=== PATIENT | female | born 2000 | race Caucasian/White ===

== ENCOUNTER 2020-10-19 14:51 | Day surgery (SDC) | payer OTHER, SELFPAY ==
[2020-10-19 15:22] VITALS: BP 111/62; PULSE 95; RESP 18; TEMP 36.7; O2SAT 99
[2020-10-19] MEDS: Lactated Ringers 1,000 ML 100 ML IV (15:38)
[2020-10-19 15:48] LABS: Internal QC Validated? YES +Cl - CLEAR BKGD; Pregnancy, Urine Negative Negative
[2020-10-19] MEDS: Lidocaine 1% /Epi 1:100 (20ml) 20 ML Vial (16:22)
--- NOTE | 2020-10-19 16:28 | PCM.DC ---
Discharge Instructions Follow Up Care Please Follow Up With: antoinette neves When: 2 weeks. Test Results: Test results from this visit will be discussed in further detail at your follow-up appointment, if applicable. Discharge Plan Admission Attending Provider: Adam Neves Primary Care Provider: Coy Lozano Discharge Orders/Prescriptions Prescriptions: No Action fluoxetine 40 mg capsule 40 mg PO DAILY RF: 0 clindamycin HCl 300 mg capsule 300 mg PO Q6H RF: 0 acetaminophen 325 mg Capsule 325 mg PO Q6H PRN (Reason: Pain) RF: 0 Referrals / Follow Up: Coy Lozano MD [Primary Care Provider] - Disposition Discharge Orders: Discharge Patient (Routine); Ordered 10/19/20 Ordered By: Dr. Adam Neves
--- NOTE | 2020-10-19 16:30 | PCM.OPRPT ---
Report of Operation Date of Procedure: 10/19/20 Pre-Operative Diagnosis: right peritonsillar abscess Post-Operative Diagnosis: same Surgery/Procedure Performed:: Incision and drainage right peritonsillar abscess Surgeon: antoinette rasheed Type of Anesthesia: General Anesthesiologist: ghazala gimenez Estimated Blood Loss (mL): minimal Description of Procedure: The patient was brought to the operating room on 10/19/2020. She was placed in the supine position on the operating room table. She was given sufficient general endotracheal anesthesia. The tables are 9 degrees in a clockwise fashion. A Phi mouthgag was inserted into the patient's mouth and the patient was suspended on a Terrazas stand. 1% lidocaine with epinephrine injected into the mucosa overlying the peritonsillar abscess. An incision was made in the mucosa with an 11 blade. I then placed a tonsil clamp in the peritonsillar space and spread this widely. There was immediate extrusion of copious amounts of pus. This was cultured. I then suction the abscess cavity with the Amicar suction. I then irrigated the abscess cavity with 500 cc of saline. I used some suction cautery on the edges of the mucosa. Once hemostasis was achieved the instrumentation was removed. The Patient was then awoken and brought to recovery room in stable condition. blood loss minimal, replacement none. sponge needle and instrument count correct at the end of procedure.
[2020-10-19 16:40] VITALS: BP 111/62; BP 113/67; PULSE 92; RESP 16; TEMP 36.7; O2SAT 97
[2020-10-19 16:45] VITALS: BP 102/65; BP 111/62; PULSE 90; RESP 16; O2SAT 99
[2020-10-19 17:00] VITALS: BP 111/62; BP 127/77; PULSE 89; RESP 16; O2SAT 100
[2020-10-19 17:02] VITALS: BP 111/62; BP 122/74; PULSE 90; RESP 16; TEMP 37.4; O2SAT 99
[2020-10-19] MEDS: Acetaminophen 325 MG Tablet 650 MG PO (17:27)
[2020-10-19 17:30] VITALS: BP 111/62; BP 123/63; PULSE 84; RESP 16; TEMP 37.3; O2SAT 98
== END 2020-10-19 17:42 ==
LOC: SDC 15:01 → AC 15:02
PROVIDERS: Anesthesiology; PCP Pediatrics; Visit Provider Otolaryngology
PROC: 0C9PXZZ Drainage of Tonsils, External Approach (ICD-10-PCS; CPT 42700; principal; 2020-10-19 15:55)
DX: J36 Peritonsillar abscess (principal); J45.909 Unspecified asthma, uncomplicated; Z79.899 Other long term (current) drug therapy; F41.9 Anxiety disorder, unspecified
CPT/HCPCS: 00170; 42700; 81025; 87070; 87075; 87077; 87205; 87426; J7120; A4216; J2405

== ENCOUNTER → 2020-11-16 14:36 | Outpatient (CLI) | payer OTHER, SELFPAY | PROVIDERS: PCP Pediatrics; Referring Provider Otolaryngology; Visit Provider Otolaryngology | DX: J03.90 Acute tonsillitis, unspecified (principal) | CPT/HCPCS: 87070 ==

== ENCOUNTER → 2020-12-14 08:46 | Outpatient (CLI) | payer OTHER, SELFPAY ==
[2020-12-14 08:57] VITALS: BP 107/66; PULSE 83; RESP 16; TEMP 36; O2SAT 99; BMI 20.7
[2020-12-14] MEDS: Penicillin G Benzathine 1.2 MU/2 ML Syringe IM (09:16)
== END ==
PROVIDERS: PCP Pediatrics; Referring Provider Otolaryngology; Visit Provider Otolaryngology
DX: J35.01 Chronic tonsillitis (principal)
CPT/HCPCS: 96372

== ENCOUNTER → 2021-01-11 13:48 | Outpatient (CLI) | payer OTHER, SELFPAY ==
[2020-12-14 08:57] VITALS: BMI 20.7
[2021-01-11 13:55] VITALS: BP 107/56; PULSE 73; RESP 16; TEMP 35.8; O2SAT 99; BMI 20.7
[2021-01-11] MEDS: Penicillin G Benzathine 1.2 MU/2 ML Syringe IM (13:57)
== END ==
PROVIDERS: PCP Pediatrics; Referring Provider Otolaryngology; Visit Provider Otolaryngology
DX: J36 Peritonsillar abscess (principal); J35.1 Hypertrophy of tonsils
CPT/HCPCS: 96372

== ENCOUNTER → 2021-01-20 14:53 | Outpatient (CLI) | payer OTHER, SELFPAY | PROVIDERS: PCP Pediatrics; Visit Provider Otolaryngology | DX: Z03.818 Encounter for observation for suspected exposure to other biological agents ruled out (principal) | CPT/HCPCS: 87635; U0005; U0003 ==

== ENCOUNTER → 2023-07-02 | Outpatient (CLI) | payer OTHER, SELFPAY ==
--- OUTSIDE RECORDS SUMMARY | 2023-07-02 16:21 | XMS RPT_ITS | CCD ---
Author Name Unknown Address [address] [place] [address] Organization [facility] Care Team Providers Care Motorcycle Tester Name Role Phone Steve Ortega MD Primary Care Provider [phone] Unavailable Primary Care Provider JOCY Cunningham Attending Unavailable STEVE ORTEGA Attending Unavailable STEVE ORTEGA Primary Care Unavailable Allergies Allergy Classification Reported Allergen(s) Allergy Type Date of Onset Reaction(s) Facility (4 sources) Amoxicillin / Clavulanate; Translations: [AMOXICILLIN-POT CLAVULANATE] Drug Allergy 10-19-2005 GI Upset [facility] Work Phone: Medications Completed/Discontinued Medications Medication Drug Class(es) Dates Sig (Normalized) Sig (Original) [id number] 200 actuat albuterol 0.09 mg/actuat metered dose inhaler (3 sources) beta2-Adrenergic Agonist Start: 05-31-2021 take 2 puff(s) by inhalation every four hours as needed for wheezing albuterol HFA (PROVENTIL HFA, VENTOLIN HFA) 90 mcg/actuation inhaler Indications: Mild intermittent asthma without complication Inhale 2 Puffs as instructed every 4 hours as needed for wheezing/shortness of breath. 18 g 0 05/31/2021 Active Problems Problem Classification Problem Date Documented Date Episodic/Chronic Anxiety disorders (4 sources) Anxiety; Translations: [Anxiety disorder, unspecified] Onset: 04-10-2011 04-10-2011 Chronic Asthma (3 sources) Mild intermittent asthma; Translations: [Mild intermittent asthma, uncomplicated] Onset: 12-30-2012 01-12-2014 Chronic Immunizations and screening for infectious disease (1 source) Patient encounter status; Translations: [Encounter for screening for human papillomavirus (HPV)] Episodic Malaise and fatigue (1 source) Malaise and fatigue; Translations: [Other malaise] Episodic Other screening for suspected conditions (not mental disorders or infectious disease) (1 source) Cancer cervix screening status; Translations: [Encounter for screening for malignant neoplasm of cervix] Episodic Syncope (1 source) Near syncope; Translations: [Syncope and collapse] Episodic Results Test Name Value Interpretation Reference Range Facil ity Vital Signs Date Time Vital Sign Value Performing Clinician Angella kate 09-21-2022 14:07-0400 Body height 175.3 cm Jocy Larsen APRN.CNM Work Phone: [facility] 09-21-2022 14:07-0400 Body weight 68.95 kg Jocy Larsen APRN.CNM Work Phone: [facility] 09-21-2022 14:07-0400 Diastolic blood pressure 66 mm[Hg] Jocy Larsen APRN.CNM Work Phone: [facility] 09-21-2022 14:07-0400 Systolic blood pressure 104 mm[Hg] Jocy Larsen APRN.CNM Work Phone: [facility] 03-02-2022 17:25-0400 Body height 173.9 cm Steve rOtega MD Work Phone: [facility] 03-02-2022 17:25-0400 Body temperature 97.11 [degF] Steve Ortega MD Work Phone: [facility] 03-02-2022 17:25-0400 Body weight 68.72 kg Steve Ortega MD Work Phone: [facility] 03-02-2022 17:25-0400 Diastolic blood pressure 60 mm[Hg] Steve Ortega MD Work Phone: [facility] 03-02-2022 17:25-0400 Heart rate 80 /min Steve Ortega MD Work Phone: [facility] 03-02-2022 17:25-0400 Respiratory rate 18 /min Steve Ortega MD Work Phone: [facility] 03-02-2022 17:25-0400 Systolic blood pressure 112 mm[Hg] Steve Ortega MD Work Phone: [facility] 09-16-2021 08:00-0400 Body height 174.4 cm Duyen Nayak COMPRESSOR STATION ENGINEER.HUNTER TRAPPER Work Phone: [facility] 09-16-2021 08:00-0400 Body temperature 98.1 [degF] Duyen Nayak COMPRESSOR STATION ENGINEER.HUNTER TRAPPER Work Phone: [facility] 09-16-2021 08:00-0400 Body weight 68.95 kg Duyen Nayak COMPRESSOR STATION ENGINEER.HUNTER TRAPPER Work Phone: [facility] 09-16-2021 08:00-0400 Diastolic blood pressure 60 mm[Hg] Duyen Nayak COMPRESSOR STATION ENGINEER.HUNTER TRAPPER Work Phone: [facility] 09-16-2021 08:00-0400 Heart rate 84 /min Duyen Nayak COMPRESSOR STATION ENGINEER.HUNTER TRAPPER Work Phone: [facility] 09-16-2021 08:00-0400 Respiratory rate 16 /min Duyen Nayak COMPRESSOR STATION ENGINEER.HUNTER TRAPPER Work Phone: [facility] 09-16-2021 08:00-0400 Systolic blood pressure 102 mm[Hg] Duyen Nayak COMPRESSOR STATION ENGINEER.HUNTER TRAPPER Work Phone: [facility] Encounters Encounter Date Encounter Type Care Provider Facility Start: 09-21-2022 End: 09-21-2022 ambulatory JOCY LARSEN Facility:[facility] Start: 09-21-2022 End: 09-21-2022 Patient encounter procedure Jocy Larsen APRN.JOANNAM Work Phone: OB/Gynecology Procedures Date Procedure Procedure Detail Performing Clinician Start: 03-02-2022 Ecg routine ecg w/le ast 12 lds w/i&r [facility] Provider Start: 09-15-2021 Adult depression screening assessment Duyen Nayak APRN.HUNTER TRAPPER Work Phone: Plan of Treatment Date Care Activity Detail Author Start: 03-02-2023 ANNUAL PCP TEAM IRRIGATOR HEAD MARKEL DISEASE VISIT ANNUAL PCP TEAM CHRONIC DISEASE VISIT [facility] Start: 01-26-2023 Influenza vaccination INFLUENZ A (Season Ended) [facility] Start: 09-16-2022 ANNUAL PCP TEAM IRRIGATOR HEAD MARKEL DISEASE VISIT ANNUAL PCP TEAM CHRONIC DISEASE VISIT [facility] Start: 09-16-2022 ASTHMA CONTROL TEST ASTHMA CONTROL T EST [facility] Start: 09-15-2022 Adult depression screening assessment DEPRESSION SCREENING [facility] Start: 05-28-2022 DEPRESSION ASSESSMENT DEPRESSION ASS ESSMENT [facility] Start: 01-26-2022 Influenza vaccination C [facility] Start: 12-20-2021 Urine microalbumin profile DTAP,TDAP,TD (7 - Td or Tdap) [facility] Start: 09-16-2021 End: 11-16-2021 VITAMIN D 25 [facility] Work Phone: Immunizations Immunization Date Immunization Notes Care Provider Fa cili 02-25-2019 influenza virus vacc ine, unspecified formulation Duyen Nayak COMPRESSOR STATION ENGINEER.[facility] Work Phone: [facility] 12-11-2016 meningococcal polysaccharide (groups A, C, Y and W-135) diphtheria toxoid conjugate vaccine (MCV4P) Duyen Nayak COMPRESSOR STATION ENGINEER.HUNTER TRAPPER Work Phone: [facility] 06-08-2015 influenza, injectabl e, quadrivalent, preservative free Duyen Nayak COMPRESSOR STATION ENGINEER.HUNTER TRAPPER Work Phone: [facility] 06-24-2013 influenza virus vacc ine, unspecified formulation Duyen Nayak COMPRESSOR STATION ENGINEER.[facility] Work Phone: [facility] Work Phone: 12-30-2012 varicella virus vaccine Kristy Nayak COMPRESSOR STATION ENGINEER.HUNTER TRAPPER Work Phone: [facility] 10-08-2012 human papilloma viru s vaccine, quadrivalent Duyen Nayak COMPRESSOR STATION ENGINEER.HUNTER TRAPPER Work Phone: [facility] 10-08-2012 varicella virus vaccine Kristy Nayak COMPRESSOR STATION ENGINEER.HUNTER TRAPPER Work Phone: [facility] 04-06-2012 influenza virus vacc ine, unspecified formulation Duyen Nayak COMPRESSOR STATION ENGINEER.HUNTER TRAPPER Work Phone: [facility] Work Phone: 02-15-2012 human papilloma viru s vaccine, quadrivalent Duyen Nayak COMPRESSOR STATION ENGINEER.HUNTER TRAPPER Work Phone: [facility] 02-15-2012 Meningococcal, MCV4, unspecified conjugate formulation(groups A, C, Y and W-135) Duyen Nayak COMPRESSOR STATION ENGINEER.[facility] Work Phone: [facility] 12-21-2011 human papilloma viru s vaccine, quadrivalent Duyen Nayak COMPRESSOR STATION ENGINEER.HUNTER TRAPPER Work Phone: [facility] 12-21-2011 tetanus toxoid, redu kasia diphtheria toxoid, and acellular pertussis vaccine, adsorbed Duyen Nayak COMPRESSOR STATION ENGINEER.HUNTER TRAPPER Work Phone: [facility] 02-25-2011 influenza virus vacc ine, unspecified formulation Duyen Nayak COMPRESSOR STATION ENGINEER.[facility] Work Phone: [facility] Work Phone: 04-02-2010 influenza virus vacc ine, unspecified formulation Duyen Nayak COMPRESSOR STATION ENGINEER.[facility] Work Phone: [facility] Work Phone: 02-27-2009 influenza virus vacc ine, unspecified formulation Duyen Nayak COMPRESSOR STATION ENGINEER.[facility] Work Phone: [facility] Work Phone: 04-02-2008 influenza virus vacc ine, unspecified formulation Duyen Nayak COMPRESSOR STATION ENGINEER.[facility] Work Phone: [facility] Work Phone: 04-02-2006 influenza virus vacc ine, unspecified formulation Duyen Nayak COMPRESSOR STATION ENGINEER.[facility] Work Phone: [facility] Work Phone: 04-04-2005 influenza virus vacc ine, unspecified formulation Duyen Nayak COMPRESSOR STATION ENGINEER.[facility] Work Phone: [facility] Work Phone: 12-26-2004 diphtheria, tetanus toxoids and acellular pertussis vaccine Duyen Nayak COMPRESSOR STATION ENGINEER.[facility] Work Phone: [facility] Work Phone: 12-26-2004 measles, mumps and rubella virus vaccine Duyen Nayak COMPRESSOR STATION ENGINEER.[facility] Work Phone: [facility] Work Phone: 12-26-2004 poliovirus vaccine, inactivated Duyen Nayak COMPRESSOR STATION ENGINEER.HUNTER TR[employer]PER Work Phone: [facility] Work Phone: 04-27-2003 influenza virus vacc ine, unspecified formulation Duyen Nayak COMPRESSOR STATION ENGINEER.HUNTER TRAPPER Work Phone: [facility] Work Phone: 02-13-2001 diphtheria, tetanus toxoids and acellular pertussis vaccine Duyen Nayak COMPRESSOR STATION ENGINEER.HUNTER TRAPPER Work Phone: [facility] Work Phone: 02-13-2001 haemophilus influenz ae type b vaccine, HbOC conjugate Duyen Nayak COMPRESSOR STATION ENGINEER.[facility] Work Phone: [facility] Work Phone: 02-13-2001 hepatitis B vaccine, pediatric or pediatric/adolescent dosage Duyen Nayak COMPRESSOR STATION ENGINEER.[facility] Work Phone: [facility] Work Phone: 11-13-2000 measles, mumps and rubella virus vaccine Duyen Nayak COMPRESSOR STATION ENGINEER.HUNTER TRAPPER Work Phone: [facility] Work Phone: 11-13-2000 pneumococcal conjuga te vaccine, 7 valent Duyen Nayak COMPRESSOR STATION ENGINEER.HUNTER TRAPPER Work Phone: [facility] Work Phone: 08-10-2000 hepatitis B vaccine, pediatric or pediatric/adolescent dosage Dyuen Nayak COMPRESSOR STATION ENGINEER.HUNTER TRAPPER Work Phone: [facility] Work Phone: 08-10-2000 pneumococcal conjuga te vaccine, 7 valent Duyen Nayak COMPRESSOR STATION ENGINEER.HUNTER TRAPPER Work Phone: [facility] Work Phone: 08-10-2000 poliovirus vaccine, inactivated Duyen Nayak COMPRESSOR STATION ENGINEER.HUNTER TRAPPER Work Phone: [facility] Work Phone: 05-12-2000 diphtheria, tetanus toxoids and acellular pertussis vaccine Duyen Nayak COMPRESSOR STATION ENGINEER.HUNTER TRAPPER Work Phone: [facility] Work Phone: 05-12-2000 haemophilus influenz ae type b vaccine, HbOC conjugate Duyen Nayak COMPRESSOR STATION ENGINEER.HUNTER TRAPPER Work Phone: [facility] Work Phone: 05-12-2000 hepatitis B vaccine, pediatric or pediatric/adolescent dosage Duyen Nayak COMPRESSOR STATION ENGINEER.[facility] Work Phone: [facility] Work Phone: 05-12-2000 pneumococcal conjuga te vaccine, 7 valent Duyen Nayak COMPRESSOR STATION ENGINEER.[facility] Work Phone: [facility] Work Phone: 03-12-2000 diphtheria, tetanus toxoids and acellular pertussis vaccine Duyen Nayak COMPRESSOR STATION ENGINEER.[facility] Work Phone: [facility] Work Phone: 03-12-2000 haemophilus influenz ae type b vaccine, HbOC conjugate Duyen Nayak COMPRESSOR STATION ENGINEER.HUNTER TRAPPER Work Phone: [facility] Work Phone: 03-12-2000 pneumococcal conjuga te vaccine, 7 valent Duyen Nayak COMPRESSOR STATION ENGINEER.[facility] Work Phone: [facility] Work Phone: 03-12-2000 poliovirus vaccine, inactivated Duyen Nayak COMPRESSOR STATION ENGINEER.[facility] Work Phone: [facility] Work Phone: 01-11-2000 diphtheria, tetanus toxoids and acellular pertussis vaccine Duyen Nayak COMPRESSOR STATION ENGINEER.HUNTER TRAPPER Work Phone: [facility] Work Phone: 01-11-2000 haemophilus influenz ae type b vaccine, HbOC conjugate Duyen Nayak COMPRESSOR STATION ENGINEER.HUNTER TRAPPER Work Phone: [facility] Work Phone: 01-11-2000 poliovirus vaccine, inactivated Duyen Nayak COMPRESSOR STATION ENGINEER.[facility] Work Phone: [facility] Work Phone: Payers Date Payer Category Payer Unknown [employer] P[employer] [id number] 2018-Present [phone] [address] [place] [address] PPO [id number] 2018 Unknown [employer] PPO [id number] 2018-Present [phone] [address] [place] [address] PPO [id number] 2018 Unknown [id number] Social History Date Type Detail Facility Start: 12-16-2010 Tobacco smoking stat [facility] Never smoked tobacco [facility] Work Phone: Start: 09-16-2021 Alcohol intake Current non-dr operation supervisor of alcohol (finding) [facility] Start: 02-09-2021 History SDOH Financial 5 [facility] Start: 02-09-2021 End: 09-15-2021 History SDOH Food Worry 1 [facility] Start: 02-09-2021 End: 09-15-2021 History SDOH Transport Med 2 [facility] Start: 1999 Sex Assigned At Female C [facility] Work Phone: Start: 09-06-2021 End: 03-01-2022 Exposure to SARS-CoV-2 (event) Not sure [facility] Start: 12-16-2010 Tobacco use and exposure Smokeless tobacco non-user [facility] Work Phone: Start: 09-21-2022 Alcohol intake Current drinke r of alcohol (finding) [facility] Start: 09-21-2022 Alcohol Comment occasional [facility] Progress note 09-21-2022 Note Date & Type Note Facility 09-21-2022 Note HNO ID: [id number] Author: Jocy Larsen APRN.CNM Service: ? Author Type: Skating Rink Ice Maker Type: Progress Notes Filed: 09/22/2022 4:27 PM Note Text: Workers Compensation Adjuster offered: Patient declines. Shalini is a 21 year old No obstetric history on file. who presents for an annual gynecologic exam with complaints, vulvar lesion. Working at [employer] Menses: cycles every 28 days and 3 days of flow. Menses have been this bad since started at age 12. Heavy, changing super tampon every hour, bad cramps with difficulty standing, nausea. Last 2 menses have not been as bed. Contraception: none HPV vaccine: Yes Last Pap: Never done HPV: N/A History of abnormal pap: No Last mammogram: never Sexually active: No, virgin Exercise: 5 times a week for 60 minutes. Type: Weights and cardio Diet: Tries to avoid gluten due to bloating. Seatbelt use: Yes OB History No obstetric history on file. Electronics Tester History LMP: 09/07/2022 (Within Days), Having periods Age at Menarche: Age at First : Age at Menopause: Electronics Tester History Comments: Sexual Activity: Never; No partner data on record Contraception: No contraception data on record PAST MEDICAL HISTORY Diagnosis Date PMH - PAST MEDICAL HISTORY OF 12/2004 normal color vision PAST SURGICAL HISTORY Procedure Laterality Date PAST SURGICAL HISTORY OF 01/2021 Tonsillectomy FAMILY HISTORY Problem Relation Age of Onset No Known Problems Mother No Known Problems Father No Known Problems Maternal Grandmother No Known Problems Maternal Grandfather No Known Problems Paternal Grandmother No Known Problems Paternal Grandfather Heart Other pggm Heart Other mggf SOCIAL HISTORY Social History Tobacco Use Smoking status: Never Smokeless tobacco: Never Substance Use Topics Alcohol use: Yes Comment: occasional Drug use: No REVIEW OF SYSTEMS Abdomen: No abdominal pain, nausea, vomiting, diarrhea, or constipation. No bloating, early satiety, indigestion, or increased flatulence. Bladder: No dysuria, gross hematuria, urinary frequency, urinary urgency, or incontinence. Breast: No breast lumps, nipple d/c, overlying skin changes, redness or skin retraction. Allergies and current medication updated:Yes EXAM: BP 104/66 Ht 5' 9 (1.75m) Wt 152 lb (68.9kg) LMP 09/07/2022 BMI 22.44 kg/(m2). GENERAL: pleasant, female in no apparent distress HEENT: Normocephalic, atraumatic, mucus membranes moist, and no lesions NECK: Supple, full range of motion, no adenopathy, and thyroid normal DERMATOLOGY: Normal, without lesions, non-icteric, and non-hirsute BREAST: soft, non-tender, symmetric, no dominant mass, normal nipple-areolar complex, no lymphadenopathy, and no nipple discharge CHEST: Clear to auscultation, Normal inspiratory effort, Regular rate and rhythm, and No murmurs, clicks, rubs or gallops ABDOMEN: soft, non-tender, and no masses PELVIC: external genitalia normal, normal Bartholin's glands, urethra, [place]'s glands, no vulvar lesions, no cervical lesions, good vaginal support, physiologic discharge present, normal appearing perineal body and perianal region BIMANUAL: uterus normal size, shape and consistency, no adnexal masses, and non-tender RECTOVAGINAL: deferred. NEURO: alert and oriented x3,exam grossly non-focal EXTREMITIES: normal ASSESSMENT/PLAN: 1. Encounter for gynecological examination (general) (routine) without abnormal findings - ICD9: V72.31, ICD10: Z01.419 (primary diagnosis) - Completed pelvic and breast exam - Encouraged monthly BSE - Follow up for annual exam in one year. - If menses become heavy again or dysmenorrhea will call for further work up and imaging. Agreeable to plan. 2. Screening for cervical cancer - ICD9: V76.2, ICD10: Z12.4 - Completed pelvic and breast exam - Encouraged monthly BSE - Follow up for annual exam in one year. - PAP TEST 3. Encounter for screening for human papillomavirus (HPV) - ICD9: V73.81, ICD10: Z11.51 - PAP TEST 1) Health maintenance: Pap done with reflex HPV. Nutrition, exercise and routine health maintenance exams reviewed. Calcium/Vitamin D supplementation information provided. HPV vaccine: completed series 2) Contraception: none. Contraceptive options reviewed and information provided. 3) STD screening: Declined STD check. 4) Follow up one year or sooner as needed Jocy Larsen APRN.CNM [facility] History of Present illness Narrative 09-21-2022 Jocy Larsen APRN.CNM - 09/21/2022 1:51 PM EDT Note Date & Type Note Facility 09-21-2022 History of Presen t illness Narrative Workers Compensation Adjuster offered: Patient declines. Shalini is a 21 year old No obstetric history on file. who presents for an annual gynecologic exam with complaints, vulvar lesion. Working at [employer] Menses: cycles every 28 days and 3 days of flow. Menses have been this bad since started at age 12. Heavy, changing super tampon every hour, bad cramps with difficulty standing, nausea. Last 2 menses have not been as bed. Contraception: none HPV vaccine: Yes Last Pap: Never done HPV: N/A History of abnormal pap: No Last mammogram: never Sexually active: No, virgin Exercise: 5 times a week for 60 minutes. Type: Weights and cardio Diet: Tries to avoid gluten due to bloating. Seatbelt use: Yes OB History No obstetric history on file. Electronics Tester History LMP: 09/07/2022 (Within Days), Having periods Age at Menarche: Age at First : Age at Menopause: Electronics Tester History Comments: Sexual Activity: Never; No partner data on record Contraception: No contraception data on record PAST MEDICAL HISTORY Diagnosis Date PMH - PAST MEDICAL HISTORY OF 12/2004 normal color vision PAST SURGICAL HISTORY Procedure Laterality Date PAST SURGICAL HISTORY OF 01/2021 Tonsillectomy FAMILY HISTORY Problem Relation Age of Onset No Known Problems Mother No Known Problems Father No Known Problems Maternal Grandmother No Known Problems Maternal Grandfather No Known Problems Paternal Grandmother No Known Problems Paternal Grandfather Heart Other pggm Heart Other mggf SOCIAL HISTORY Social History Tobacco Use Smoking status: Never Smokeless tobacco: Never Substance Use Topics Alcohol use: Yes Comment: occasional Drug use: No REVIEW OF SYSTEMS Abdomen: No abdominal pain, nausea, vomiting, diarrhea, or constipation. No bloating, early satiety, indigestion, or increased flatulence. Bladder: No dysuria, gross hematuria, urinary frequency, urinary urgency, or incontinence. Breast: No breast lumps, nipple d/c, overlying skin changes, redness or skin retraction. Allergies and current medication updated:Yes EXAM: BP 104/66 Ht 5' 9 (1.75m) Wt 152 lb (68.9kg) LMP 09/07/2022 BMI 22.44 kg/(m^2). GENERAL: pleasant, female in no apparent distress HEENT: Normocephalic, atraumatic, mucus membranes moist, and no lesions NECK: Supple, full range of motion, no adenopathy, and thyroid normal DERMATOLOGY: Normal, without lesions, non-icteric, and non-hirsute BREAST: soft, non-tender, symmetric, no dominant mass, normal nipple-areolar complex, no lymphadenopathy, and no nipple discharge CHEST: Clear to auscultation, Normal inspiratory effort, Regular rate and rhythm, and No murmurs, clicks, rubs or gallops ABDOMEN: soft, non-tender, and no masses PELVIC: external genitalia normal, normal Bartholin's glands, urethra, [place]'s glands, no vulvar lesions, no cervical lesions, good vaginal support, physiologic discharge present, normal appearing perineal body and perianal region BIMANUAL: uterus normal size, shape and consistency, no adnexal masses, and non-tender RECTOVAGINAL: deferred. NEURO: alert and oriented x3,exam grossly non-focal EXTREMITIES: normal ASSESSMENT/PLAN: 1. Encounter for gynecological examination (general) (routine) without abnormal findings - ICD9: V72.31, ICD10: Z01.419 (primary diagnosis) - Completed pelvic and breast exam - Encouraged monthly BSE - Follow up for annual exam in one year. - If menses become heavy again or dysmenorrhea will call for further work up and imaging. Agreeable to plan. 2. Screening for cervical cancer - ICD9: V76.2, ICD10: Z12.4 - Completed pelvic and breast exam - Encouraged monthly BSE - Follow up for annual exam in one year. - PAP TEST 3. Encounter for screening for human papillomavirus (HPV) - ICD9: V73.81, ICD10: Z11.51 - PAP TEST 1) Health maintenance: Pap done with reflex HPV. Nutrition, exercise and routine health maintenance exams reviewed. Calcium/Vitamin D supplementation information provided. HPV vaccine: completed series 2) Contraception: none. Contraceptive options reviewed and information provided. 3) STD screening: Declined STD check. 4) Follow up one year or sooner as needed Jocy Larsen APRN.CNM documented in this encounter [facility] Progress note 03-02-2022 Note Date & Type Note Facility 03-02-2022 Note HNO ID: [id number] Author: Steve Ortega MD Service: ? Author Type: Physician Type: Progress Notes Filed: 03/13/2022 10:43 AM Note Text: 21-year-old female presents to the office today for routine follow-up and management of her anxiety. Currently on fluoxetine 40 mg by mouth once daily. Patient states the medication is useful tool for helping symptoms of anxiety. Patient reports she will be transitioning to Dr. Ricks at [facility]. The physician is currently on maternity leave and has an appointment scheduled with this provider in May. Patient is currently living at home. 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 Working Sunday through 7:30 AM to 4:30 PM. Enjoys her work. Patient reports she had COVID-19 six months ago. Ill for 2 weeks with significant fever fatigue and malaise. No hospitalization or emergency room. Since her COVID episode she reports feelings of tachycardia and near syncope. This can happen in a sitting position or while standing. No fainting. She does have a watch that is able to track her heart rate. Maximum heart rate is generally 120. Her baseline appears to be 60-70 based on the application tracking her heart rate. Component Latest Ref Rng AND Units 09/16/2021 WBC 3.70 - 11.00 k/uL 5.14 RBC 3.90 - 5.20 m/uL 4.24 Hemoglobin 11.5 - 15.5 g/dL 14.0 Hematocrit 36.0 - 46.0 % 41.3 MCV 80.0 - 100.0 fL 97.4 MCH 26.0 - 34.0 pg 33.0 MCHC 30.5 - 36.0 g/dL 33.9 RDW-CV 11.5 - 15.0 % 11.9 Platelet Count 150 - 400 k/uL 218 MPV 9.0 - 12.7 fL 10.3 Neut% % 66.3 Abs Neut (ANC) 1.45 - 7.50 k/uL 3.41 Lymph% % 23.5 Abs Lymph 1.00 - 4.00 k/uL 1.21 [place]% % 8.0 Abs [place] <0.87 k/uL 0.41 Eosin% % 1.4 Abs Eosin <0.46 k/uL 0.07 Baso% % 0.6 Abs Baso <0.11 k/uL 0.03 Immature Gran % % 0.2 IMMATURE GRANS (ABS) <0.10 k/uL <0.03 NRBC /100 WBC 0.0 Absolute nRBC <0.01 k/uL <0.01 DTYPE Auto Protein, Total 6.3 - 8.0 g/dL 7.0 Albumin 3.9 - 4.9 g/dL 4.6 Calcium 8.5 - 10.2 mg/dL 9.4 Bilirubin, Total 0.2 - 1.3 mg/dL 0.9 Alkaline Phosphatase 34 - 123 U/L 42 AST 13 - 35 U/L 17 ALT 7 - 38 U/L 12 Glucose 74 - 99 mg/dL 77 BUN 7 - 21 mg/dL 15 Creatinine 0.58 - 0.96 mg/dL 0.69 Sodium 136 - 144 mmol/L 138 Potassium 3.7 - 5.1 mmol/L 4.1 Chloride 97 - 105 mmol/L 104 CO2 22 - 30 mmol/L 27 Anion Gap 9 - 18 mmol/L 7 (L) eGFR >=60 mL/min/1.73mA? 127 CRP <0.9 mg/dL <0.3 Vitamin D 25 Hydroxy 31.0 - 80.0 ng/mL 36.0 Vitamin B12 232-1,245 pg/mL 293 TSH 0.270 - 4.200 mIU/L 2.100 Free T4 0.9 - 1.7 ng/dL 1.0 WSR 0 - 20 mm/hr 8 Ferritin 14.7 - 205.1 ng/mL 44.0 ACTIVE PROBLEM LIST Anxiety Mild Intermittent Asthma PAST MEDICAL HISTORY Diagnosis Date PMH - PAST MEDICAL HISTORY OF 12/2004 normal color vision PAST SURGICAL HISTORY Procedure Laterality Date PAST SURGICAL HISTORY OF 01/2021 Tonsillectomy ALLERGIES Allergen Reactions Augmentin [Amoxicil* GI Upset Severe abdominal problems 03/02/22 1725 BP: 112/60 Pulse: 80 Resp: 18 Temp: 36.2 ?C (97.1 ?F) TempSrc: Temporal Artery Weight: 68.7 kg (151 lb 8 oz) Height: 173.9 cm (5' 8.47 ) GENERAL: alert and active in no apparent distress, nontoxic-appearing HEAD: Normocephalic, atraumatic EYES: EOM's intact, steady central gaze without nystagmus, conjunctiva clear without injection or discharge, no scleral icterus NECK: Negative for anterior or posterior cervical adenopathy CARDIOVASCULAR : Regular Rate and Rhythm without murmurs or clicks, well perfused LUNGS: clear to auscultation, excellent air exchange, resonant to percussion, easy respirations without grunting/flaring/retracting. ABDOMEN : Abdomen is soft, nontender, without organomegaly or masses. No guarding or rebound. Bowel sounds are intact in all 4 quadrants. MUSCULOSKELETAL: Extremities with FROM and no problems identified. EXTREMITIES: Normal exam of the extremities. No clubbing, cyanosis, or edema. SKIN : normal color, no jaundice or rash and Normal skin turgor NEUROLOGICAL EXAM: Shalini is alert and oriented times three Speech is Speech fluent and appropriate Cranial Nerves: Pupils are equal and reactive to light. Extraocular movements grossly intact Visual manning are full to confrontation. Facial, motor and sensory exam is symmetric Tongue is in midline. Palate is upgoing bilaterally Motor Exam: Upper extremity motor exam is 5/5 in deltoid, 5/5biceps, 5/5 wrist extension, and 5/5 hand grip assembler. Lower extremity is 5/5 in IP, 5/5 quadriceps, 5/5 hamstrings, 5/5 EHL, 5/5 TA and 5/5 gastrocnemius Rapid alternating movements are smooth in the hands without dysdiadochokinesia Gait normal station and stride. Romberg's sign negative ECG: NSR Impression: (R55) Near syncope (primary encounter diagnosis): Orthostatic intolerance. (F41.9) Anxiety Plan: Office Visit on 03/02/22 FLUoxetine (PROZAC) 40 mg capsule ECG COMPLETE Pleas (more content not included)... [facility] History of Present illness Narrative 03-02-2022 Steve Ortega MD - 03/02/2022 6:27 PM EDT Note Date & Type Note Facility 03-02-2022 History of Presen t illness Narrative 21-year-old female presents to the office today for routine follow-up and management of her anxiety. Currently on fluoxetine 40 mg by mouth once daily. Patient states the medication is useful tool for helping symptoms of anxiety. Patient reports she will be transitioning to Dr. Ricks at [facility]. The physician is currently on maternity leave and has an appointment scheduled with this provider in May. Patient is currently living at home. 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 Working Sunday through 7:30 AM to 4:30 PM. Enjoys her work. Patient reports she had COVID-19 six months ago. Ill for 2 weeks with significant fever fatigue and malaise. No hospitalization or emergency room. Since her COVID episode she reports feelings of tachycardia and near syncope. This can happen in a sitting position or while standing. No fainting. She does have a watch that is able to track her heart rate. Maximum heart rate is generally 120. Her baseline appears to be 60-70 based on the application tracking her heart rate. Component Latest Ref Rng & Units 09/16/2021 WBC 3.70 - 11.00 k/uL 5.14 RBC 3.90 - 5.20 m/uL 4.24 Hemoglobin 11.5 - 15.5 g/dL 14.0 Hematocrit 36.0 - 46.0 % 41.3 MCV 80.0 - 100.0 fL 97.4 MCH 26.0 - 34.0 pg 33.0 MCHC 30.5 - 36.0 g/dL 33.9 RDW-CV 11.5 - 15.0 % 11.9 Platelet Count 150 - 400 k/uL 218 MPV 9.0 - 12.7 fL 10.3 Neut% % 66.3 Abs Neut (ANC) 1.45 - 7.50 k/uL 3.41 Lymph% % 23.5 Abs Lymph 1.00 - 4.00 k/uL 1.21 [place]% % 8.0 Abs [place] <0.87 k/uL 0.41 Eosin% % 1.4 Abs Eosin <0.46 k/uL 0.07 Baso% % 0.6 Abs Baso <0.11 k/uL 0.03 Immature Gran % % 0.2 IMMATURE GRANS (ABS) <0.10 k/uL <0.03 NRBC /100 WBC 0.0 Absolute nRBC <0.01 k/uL <0.01 DTYPE Auto Protein, Total 6.3 - 8.0 g/dL 7.0 Albumin 3.9 - 4.9 g/dL 4.6 Calcium 8.5 - 10.2 mg/dL 9.4 Bilirubin, Total 0.2 - 1.3 mg/dL 0.9 Alkaline Phosphatase 34 - 123 U/L 42 AST 13 - 35 U/L 17 ALT 7 - 38 U/L 12 Glucose 74 - 99 mg/dL 77 BUN 7 - 21 mg/dL 15 Creatinine 0.58 - 0.96 mg/dL 0.69 Sodium 136 - 144 mmol/L 138 Potassium 3.7 - 5.1 mmol/L 4.1 Chloride 97 - 105 mmol/L 104 CO2 22 - 30 mmol/L 27 Anion Gap 9 - 18 mmol/L 7 (L) eGFR >=60 mL/min/1.73m 127 CRP <0.9 mg/dL <0.3 Vitamin D 25 Hydroxy 31.0 - 80.0 ng/mL 36.0 Vitamin B12 232-1,245 pg/mL 293 TSH 0.270 - 4.200 mIU/L 2.100 Free T4 0.9 - 1.7 ng/dL 1.0 WSR 0 - 20 mm/hr 8 Ferritin 14.7 - 205.1 ng/mL 44.0 ACTIVE PROBLEM LIST Anxiety Mild Intermittent Asthma PAST MEDICAL HISTORY Diagnosis Date PMH - PAST MEDICAL HISTORY OF 12/2004 normal color vision PAST SURGICAL HISTORY Procedure Laterality Date PAST SURGICAL HISTORY OF 01/2021 Tonsillectomy ALLERGIES Allergen Reactions Augmentin [Amoxicil* GI Upset Severe abdominal problems 03/02/22 1725 BP: 112/60 Pulse: 80 Resp: 18 Temp: 36.2 C (97.1 F) TempSrc: Temporal Artery Weight: 68.7 kg (151 lb 8 oz) Height: 173.9 cm (5' 8.47 ) GENERAL: alert and active in no apparent distress, nontoxic-appearing HEAD: Normocephalic, atraumatic EYES: EOM's intact, steady central gaze without nystagmus, conjunctiva clear without injection or discharge, no scleral icterus NECK: Negative for anterior or posterior cervical adenopathy CARDIOVASCULAR : Regular Rate and Rhythm without murmurs or clicks, well perfused LUNGS: clear to auscultation, excellent air exchange, resonant to percussion, easy respirations without grunting/flaring/retracting. ABDOMEN : Abdomen is soft, nontender, without organomegaly or masses. No guarding or rebound. Bowel sounds are intact in all 4 quadrants. MUSCULOSKELETAL: Extremities with FROM and no problems identified. EXTREMITIES: Normal exam of the extremities. No clubbing, cyanosis, or edema. SKIN : normal color, no jaundice or rash and Normal skin turgor NEUROLOGICAL EXAM: Shalini is alert and oriented times three Speech is Speech fluent and appropriate Cranial Nerves: Pupils are equal and reactive to light. Extraocular movements grossly intact Visual manning are full to confrontation. Facial, motor and sensory exam is symmetric Tongue is in midline. Palate is upgoing bilaterally Motor Exam: Upper extremity motor exam is 5/5 in deltoid, 5/5biceps, 5/5 wrist extension, and 5/5 hand grip assembler. Lower extremity is 5/5 in IP, 5/5 quadriceps, 5/5 hamstrings, 5/5 EHL, 5/5 TA and 5/5 gastrocnemius Rapid alternating movements are smooth in the hands without dysdiadochokinesia Gait normal station and stride. Romberg's sign negative ECG: NSR Impression: (R55) Near syncope (primary encounter diagnosis): Orthostatic intolerance. (F41.9) Anxiety Plan: Office Visit on 03/02/22 FLUoxetine (PROZAC) 40 mg capsule ECG COMPLETE Please drink 2 to 3 L of water daily. Increase salt intake Routine exercise There is a specialist at the main [place] who is addressing post COVID POTS: Contact information given I spent a total of 25 minutes on the date of the service which included preparing to see the patient, [id number] patient care, completing clinical documentation, obtaining and/or reviewing separately obtained history, performing a medically appropriate examination, counseling and educating the patient/family/caregiver, and ordering medications, tests, or procedures. Follow-up As needed. Patient will be transitioning to an adult provider outside of the Clinic. She has an appointment in May. Steve Ortega MD [facility] Department of Pediatrics, [facility] documented in this encounter [facility] History of Present illness Narrative 09-16-2021 Duyen Nayak APRN.HUNTER TRAPPER - 09/16/2021 8:13 AM EDT Note Date & Type Note Facility 09-16-2021 History of Presen t illness Narrative PEDIATRIC SICK VISIT SERVICE DATE: 09/16/2021 SUBJECTIVE: Shalini Nieto is a 20 year old female presents to clinic for evaluation of persistent illness and fatigue. Started with peritonsillar abscess 09/2020 Presumptive Covid 03/2021 and xray showed pneumonia; took amoxicillin and recovered after about 2 weeks; symptoms fully resolved 2 weeks after that, cold sx Reports every 2 weeks would have cold sx with lowgrade fever around 100F--after a week or two would resolve and then 2 weeks later, happen again Conjunctivitis last week of july 2021 Left ear infection diagnosed at urgent care last week and started on amoxicillin--still completing course with about 3 days left Reports using inhaler more frequently this year than ever before Reports 5-6 times using inhaler in the past week Triggers for asthma are mainly when she is sick with URI sx--when URI sx resolve, inhaler use drops ] Does have a daily steroid inhaler at home--last used when she had pneumonia--used for a few weeks and then discontinued intermittnet cough during the day No cardiac sx-- denies palpitations, heart racing (other than with panic attacks) Does report intermittent dizzy spells, no hx of fainting Does report feeling more fatigued than usual for years Working as dental hygienist 100F on --sweating and chills And 100F on Otherwise no fever History was obtained from: patient HISTORY: ACTIVE PROBLEM LIST Anxiety Mild Intermittent Asthma PAST MEDICAL HISTORY Diagnosis Date PMH - PAST MEDICAL HISTORY OF 12/2004 normal color vision PAST SURGICAL HISTORY Procedure Laterality Date PAST SURGICAL HISTORY OF 01/2021 Tonsillectomy Allergies: ALLERGIES Allergen Reactions Augmentin [Amoxicil* GI Upset Severe abdominal problems Medications: albuterol HFA (PROVENTIL HFA, VENTOLIN HFA) 90 mcg/actuation inhaler Inhale 2 Puffs as instructed every 4 hours as needed for wheezing/shortness of breath. FLUoxetine HCl (PROZAC) 40 mg capsule Take 1 capsule by mouth once daily. rizatriptan (MAXALT) 10 mg tablet For head pain take Maxalt 10 mg plus Aleve 220 mg. If no better in 2 hours take a second Maxalt 10 mg plus one extra strength Tylenol. May take 2 doses of Maxalt in one day, 4 doses in 2 consecutive days, no more than 8 doses per month. amoxicillin (AMOXIL) 875 mg tablet Take 875 mg by mouth twice daily. REVIEW OF SYSTEMS: GENERAL: Positive for elevated temperature HEENT: Positive for: congestion and rhinorrhea and ear pain, negative for headaches RESPIRATORY: Positive for diurnal cough GI: Negative for vomiting, abdominal pain, diarrhea SKIN: Negative for lesions, rash, and itching. NECK: Negative for lumps, pain and significant neck swelling. NEURO: Negative for weakness, headaches or change in mental status. OBJECTIVE: BP 102/60 Pulse 84 Temp 36.7 C (98.1 F) (Temporal Artery) Resp 16 Ht 174.4 cm (5' 8.66 ) Wt 68.9 kg (152 lb) LMP 08/21/2021 (Approximate) BMI 22.67 kg/m General: well appearing, alert and active in no apparent distress Eyes: conjunctiva clear, PERRL Ears: TMs translucent: bilaterally TMs clear: bilaterally Nose: no erythema or exudate OP: moist without lesions Neck: supple, no adenopathy Lungs: clear to auscultation bilaterally, good air exchange, no retractions, no wheezes or crackles CVS: Normal rate, regular rhythm, no murmur Abdomen: soft, nondistended, nontender, no hepatosplenomegaly or masses, no rebound or guarding Skin: No rashes, lesions or skin changes Extremities: No clubbing, cyanosis, or edema., No deformities or skin discoloration. Good capillary refill. Full range of motion. Neuro: No focal deficits or abnormal findings present ASSESSMENT/PLAN: Encounter Diagnosis ICD-10-CM 1. Malaise and fatigue R53.81 CBC + DIFF R53.83 C-REACTIVE PROTEIN (CRP) COMP METABOLIC PANEL VITAMIN D 25 HYDROXY VITAMIN B12 BLOOD TSH BLD T4 FREE/FREE THYROX LIPID PANEL BASIC SED RATE WESTERGREN FERRITIN BLD - Suspect multiple viral illnesses. Symptoms resolved between episodes of illness. - Bloodwork ordered and lab results pending. - Will schedule follow up as needed based on lab results and patient symptoms. - Return to clinic as needed for persistent or worsening symptoms, or other concerns. I spent a total of 38 minutes on the date of the service which included preparing to see the patient, [id number] patient care, completing clinical documentation, obtaining and/or reviewing separately obtained history, performing a medically appropriate examination, counseling and educating the patient/family/caregiver and ordering medications, tests, or procedures. SIGNATURE: Duyen Nayak APRN.RENETTA PATIENT NAME: Shalini Nieto DATE: September 16, 2021 TIME: 8:13 AM documented in this encounter [facility] Instructions 09-16-2021 Patient Instructions Note Date & Type Note Facility 09-16-2021 Instructions Duyen Nayak APRN.RENETTA - 09/16/2021 8:13 AM EDT 5 to Go!TM Healthy Kids Inside & Out 5 Eat FIVE fruits and veggies a day 4 Give and get FOUR compliments a day 3 Consume THREE calcium products a day 2 Limit media time to TWO hours a day 1 Get at least ONE hour of exercise a day 0 Consume ZERO sugar-sweetened drinks Go! Be healthy, inside and out! [email or web address] documented in this encounter [facility] Evaluation note Note Date & Type Note Facility documented in this encounter [facility] Evaluation note Note Date & Type Note Facility documented in this encounter [facility] Evaluation note Note Date & Type Note Facility documented in this encounter [facility] Reason for referral (narrative) Outpatient Procedure (Routine) - Pending Review Note Date & Type Note Facility Referral ID Status Reason Start Date Expiration Date Visits Requested Visits Authorized [id number] Pending Review Auto-Generat ed Referral 03/02/2022 03/02/2023 1 1 [facility] Summary Purpose Family History No Family History Records FoundNo Family History Records Found Advance Directives No Advanced Directives Records FoundNo Advanced Directives Records Found Additional Source Comments INFORMATION SOURCE (unrecogn ized section and content) DATE CREATED AUTHOR AUTHOR'S ORGANIZ ATION 09/30/2022 [facility] Source Comments (unrecognize d section and content) In the event this informatio n is protected by the Federal Confidentiality of Alcohol and Drug Abuse Patient Records regulations: The Federal rules restrict any use of the information to criminally investigate or prosecute any alcohol or drug abuse patient.[facility] the event this information is protected by the [facility] Confidentiality of Alcohol and Drug Abuse Patient Records regulations: The Federal rules restrict any use of the information to criminally investigate or prosecute any alcohol or drug abuse patient.[facility] the event this information is protected by the Federal Confidentiality of Alcohol and Drug Abuse Patient Records regulations: The Federal rules restrict any use of the information to criminally investigate or prosecute any alcohol or drug abuse patient.[facility] Reason for Visit (unrecogniz ed section and content) Specialty Diagnoses / Procedures Referred By Contac t Referred To Contact Pediatrics / PEDIATRICS Diagnoses ST and ear pain, strep neg at Procedures EST PATIENT VISIT LEVEL 5 EST PEDS SIMPLE Self Inez Simmons MD [address] [place] [address] Referral ID Status Reason Start Date Expiration Date V isits Requested Visits Authorized [id number] Authorized 10/18/2020 10/18/2021 99 99 Reason Comments Recheck Pt is on Prozac and has run out. Specialty Diagnoses / Procedures Referred By Contac t Referred To Contact Pediatrics / PRIMARY CARE PEDIATRICS Diagnoses Medication management MEDICATION Procedures OFFICE/OUTPATIENT ESTABLISHED MOD MDM 30-39 MIN 4C EST Self Steve Ortega MD [address] [place] [address] Referral ID Status Reason Start Date Expiration Date Visits Re quested Visits Authorized [id number] Closed 03/02/2022 05/27/2022 1 1 Reason Comments Yearly Exam Care Teams (unrecognized sec tion and content) Motorcycle Tester Relationship Specialty Start Date End Date Steve Ortega MD [address] [place], [place] [id number] PCP - General 03/22/02 FOR RECORDS PERTAINING TO PATIENTS WHO ARE OR HAVE BEEN ENROLLED IN A CHEMICAL DEPENDENCY/SUBSTANCEABUSE PROGRAM, SOME INFORMATION MAY BE OMITTED. This clinical summary was aggregated from multiple sources. Caution should be exercised in using it in the provision of clinical care. This summary normalizes information from multiple sources, and as a consequence, information in this document may materially change the coding, format and clinical context of patient data. In addition, data may be omitted in some cases. CLINICAL DECISIONS SHOULD BE BASED ON THE PRIMARY CLINICAL RECORDS. [facility]. provides no warranty or guarantee of the accuracy or completeness of information in this document.
[2023-07-02 17:46] LABS: Absolute Lymphocyte Count 1.59 X10^3/uL (0.83-4.51); Absolute Neutrophil Count 2.9 X10^3/uL (2.0-7.7); Basophil# 0.03 X10^3/uL; Basophil% 0.6 % (0-1); Eosinophil# 0.04 X10^3/uL; Eosinophils% 0.8 % (0-5); Hematocrit 42.5 % (37-47); Lymphocyte # 1.59 X10^3/ul (0.83-4.51); Lymphocyte % 31.9 % (19-41); Mean Corp Hgb Conc 32.9 g/dL (32-36); Mean Corpuscular Hgb 32.7 pg (27.0-32.0); Mean Corpuscular Volume 99.3 fL (81-99); Mean Platelet Vol. 10.7 fl (6.2-12.0); Monocyte# 0.38 X10^3/uL; Monocyte% 7.6 % (0-10); NRBC Flagged by Analyzer 0 % (0-5); Neutrophil # 2.93 X10^3/uL (2.7-7.7); Neutrophil % 58.9 % (47-70); Platelet Count 233 K/mm3 (150-450); RBC Distribution Width CV 11.7 % (11.6-14.6); RBC Distribution Width SD 42.5 fl (35.1-43.9); Red Blood Count 4.28 M/mm3 (4.2-5.4)
[2023-07-02 17:58] LABS: Vitamin B12 601 pg/mL (211-911); Vitamin D,25 Hydroxy 36.3 ng/mL
[2023-07-02 18:12] LABS: Hemoglobin A1c 4.9 % (3.8-5.6)
[2023-07-02 18:18] LABS: ALB/GLOB Ratio 1.4 RATIO (0.9-2.4); AST(SGOT) 16 U/L (15-37); Alanine Aminotransfer ALT/SGPT 35 U/L (13-56); Albumin, Serum 4.5 g/dL (3.2-5.0); Alkaline Phosphatase 44 U/L (45-117); Anion Gap 3 (5-15); BUN 12 mg/dL (7-18); BUN/Creat Ratio 15.9 RATIO (10-20); Calcium,Total 9.7 mg/dL (8.5-10.1); Chloride 102 mmol/L (98-107); Creatinine, Serum 0.75 mg/dL (0.55-1.02); EST Glomerular Filtration Rate 101 mL/min (>60); Est Glom Filt Rate - Afr Amer 122 mL/min (>60); Ferritin 40 ng/mL (8-252); Globulin 3.3 g/dL (2.2-4.2); Glucose 69 mg/dL (74-106); Magnesium 2.5 mg/dL (1.6-2.6); Potassium 3.9 mmol/L (3.5-5.1); Protein, Total 7.8 g/dL (6.4-8.2); Sodium Level 136 mmol/L (136-145); Thyroid Stim Hormone (TSH) 1.33 uIU/mL (0.358-3.74)
== END | disposition home or self-care (01) ==
LOC: MFPLAB 14:20
PROVIDERS: PCP Pediatrics; Visit Provider Family Medicine
DX: R00.2 Palpitations (principal); R42 Dizziness and giddiness
CPT/HCPCS: 36415; 80053; 82306; 82607; 82728; 83036; 83735; 84443; 85025

== ENCOUNTER → 2023-09-03 | Outpatient (CLI) | payer OTHER, SELFPAY ==
--- NOTE | 2023-09-03 12:46 | ECHOD_ITS ---
Reason For Study: SUPRAVENTRICULAR TACHYCARDIA Procedure This was a 2D Doppler, Color Flow transthoracic echocardiogram. Exam performed in department. Left Ventricle Normal LV size. The estimated ejection fraction is 60 %. No evidence for diastolic dysfunction. No regional wall motion abnormalities noted. Right Ventricle Normal RV size. Normal systolic function. Atria Normal left atrium. Normal right atrium. No doppler evidence for ASD. Mitral Valve There is no mitral valve stenosis. No mitral valve insufficiency. Tricuspid Valve There is no tricuspid stenosis. Trivial tricuspid valve insufficiency. Unable to estimate RV systolic pressure due to insufficient tricuspid regurgitant envelope. Aortic Valve Trisinus/trileaflet aortic valve. There is no aortic stenosis. No aortic valve insufficiency. Pulmonic Valve There is no pulmonic valvular stenosis. Trivial pulmonic valve insufficiency. Great Vessels Normal aortic root. Pericardium/Pleural No pericardial effusion. MMode/2D Measurements & Calculations LVIDd: 4.7 cm IVSd: 0.87 cm LVOT diam: 2.0 cm LVIDs: 2.9 cm LVPWd: 0.62 cm LVOT area: 3.1 cm2 RVDd: 3.7 cm FS: 37.6 % Ao root diam: 2.7 cm LAV(MOD-bp): 45.0 ml LVAd ap4: 27.6 cm2 LAV(MOD-bp) Indexed: 24.6 ml/m2 LVLd ap4: 8.0 cm LAV(MOD-sp2): 54.5 ml EDV(MOD-sp4): 78.4 ml LAV(MOD-sp4): 32.1 ml EDV(sp4-el): 80.8 ml LVAs ap4: 14.2 cm2 LVLs ap4: 6.1 cm ESV(MOD-sp4): 27.8 ml ESV(sp4-el): 28.1 ml EF(MOD-sp4): 64.5 % EF(sp4-el): 65.2 % LVAd ap2: 27.7 cm2 SV(MOD-sp4): 50.6 ml SV(MOD-sp2): 53.2 ml LVLd ap2: 7.7 cm EDV(MOD-sp2): 82.6 ml EDV(sp2-el): 84.0 ml LVAs ap2: 14.4 cm2 LVLs ap2: 6.1 cm ESV(MOD-sp2): 29.5 ml ESV(sp2-el): 28.8 ml EF(MOD-sp2): 64.3 % SV(sp4-el): 52.7 ml LA dimension(2D): 3.4 cm LA A4 area: 14.9 cm2 RA A4 area: 13.9 cm2 TAPSE: 1.9 cm Time Measurements MV dec time: 0.19 sec Doppler Measurements & Calculations MV E max twin: 101.9 cm/sec Lat Peak E' Twin: 24.1 cm/sec Med Peak E' Twin: 14.2 cm/sec MV A max twin: 41.5 cm/sec E/E' lat: 4.2 E/E' med: 7.2 MV E/A: 2.5 Ao V2 max: 103.6 cm/sec LV V1 max: 105.3 cm/sec MV dec slope: 543.5 cm/sec2 Ao max P.3 mmHg LV V1 max P.4 mmHg Ao V2 mean: 78.2 cm/sec LV V1 mean P.5 mmHg Ao mean P.6 mmHg LV V1 mean: 74.3 cm/sec Ao V2 VTI: 22.3 cm LV V1 VTI: 26.3 cm AV (velocity ratio): 1.2 PAUL(I,D): 3.6 cm2 PAUL(V,D): 3.1 cm2 SV(LVOT): 80.7 ml PA V2 max: 99.1 cm/sec PI end-d twin: 57.0 cm/sec PA max PG (full): 1.3 mmHg TR max tiwn: 176.7 cm/sec TR max P.5 mmHg ECHO/Echo Complete Interpretation Summary The estimated ejection fraction is 60 %. No evidence for diastolic dysfunction. Ordering Physician: Kg Gould Referring Physician: Kg Gould MD Performed By: Nelsy Arredondo RDCS
== END | disposition home or self-care (01) ==
LOC: CVS 12:45
PROVIDERS: PCP Family Medicine; Referring Provider Internal Medicine Cardiovascular Disease; Visit Provider Internal Medicine Cardiovascular Disease
DX: I47.19 Other supraventricular tachycardia (principal)
CPT/HCPCS: 93306